=== PATIENT | female | born 2000 | race Caucasian/White ===

== ENCOUNTER 2020-01-09 20:52 | Emergency (ER) | payer SELFPAY ==
[~2020-01-09] VITALS: Ht 160 cm; Wt 45.5 kg
[2020-01-09 21:15] VITALS: Ht 160 cm; Wt 45.5 kg
[2020-01-09] MEDS ORDERED: ANTIDEPRESSANT (21:18)
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
[2020-01-09 22:04] LABS: BASOPHILS 0.3 % (0-2); EOSINOPHILS 5.5 % (0-7); HEMOGLOBIN 11.4 g/dL (12-16); IMMATURE GRANULOCYTES 0.6 % (0-5); LYMPHOCYTES 34.6 % (15-50); MCH 28.5 pg (26.0-34.0); MCHC 31.7 g/dL (31.0-37.0); MONOCYTES 12.2 % (2-11); NEUTROPHILS 46.8 % (40-80); PLATELET COUNT 264 10x3/uL (130-400); RDW 13.2 % (11.5-14.5); WBC 10.2 10x3/uL (4.8-10.8)
[2020-01-09 22:05] LABS: BILIRUBIN NEGATIVE (NEGATIVE); GLUCOSE NEGATIVE (NEGATIVE); KETONE NEGATIVE (NEGATIVE); NITRITE NEGATIVE (NEGATIVE); UROBILINOGEN NORMAL (NORMAL)
[2020-01-09 22:07] LABS: HCG URINE NEGATIVE (NEGATIVE)
[2020-01-09 22:15] LABS: CALC OSMOLALITY 272 mosm/kg (275-300); CALCIUM 8.7 mg/dL (8.5-10.1); CHLORIDE - SERUM 104 mmol/L (98-107); CREATININE - SERUM 0.8 mg/dL (0.6-1.3); GLUCOSE 84 mg/dL (74-106); POTASSIUM - SERUM 3.6 mmol/L (3.5-5.1); SODIUM 136 mmol/L (136-145); UREA NITROGEN 18 mg/dL (7-18); eGFR NON AFRICAN AMERICAN > 90 mL/min (90-120)
[2020-01-09 23:00] VITALS: BP 113/80
== END 2020-01-09 23:00 | disposition home or self-care (01) ==
LOC: D.ER 20:52
PROVIDERS: Emergency Medicine
DX: G44.209 Tension-type headache, unspecified, not intractable (principal); R11.0 Nausea

== ENCOUNTER 2020-10-25 20:42 | Emergency (ER) | payer OTHER ==
[~2020-10-25] VITALS: Ht 160 cm; Wt 72.3 kg
[~2020-10-25 20:42] MED LIST: ANTIDEPRESSANT
[2020-10-25 20:51] VITALS: Ht 160 cm; Wt 72.3 kg
[2020-10-25 22:31] LABS: BILIRUBIN NEGATIVE (NEGATIVE); HCG URINE NEGATIVE (NEGATIVE); KETONE NEGATIVE (NEGATIVE); NITRITE NEGATIVE (NEGATIVE); UROBILINOGEN NORMAL mg/dL (< 2)
[2020-10-25 22:45] LABS: BASOPHILS 0.2 % (0-2); EOSINOPHILS 5.9 % (0-7); HEMATOCRIT 37.4 % (36.0-48.0); HEMOGLOBIN 11.8 g/dL (12-16); IMMATURE GRANULOCYTES 0.4 % (0-5); LYMPHOCYTE ABS# 4.18 10x3/uL (1.18-3.74); LYMPHOCYTES 29.5 % (15-50); MCH 26.6 pg (26.0-34.0); MCHC 31.6 g/dL (31.0-37.0); MCV 84.2 fL (80.0-100.0); MEAN PLATELET VOLUME 10.1 fL (7.4-10.4); MONOCYTES 8.2 % (2-11); NEUTROPHIL ABS# 7.89 10x3/uL (1.56-6.13); NEUTROPHILS 55.8 % (40-80); RBC 4.44 10x6/uL (4.00-5.40); RDW 15.6 % (11.5-14.5); WBC 14.2 10x3/uL (4.8-10.8)
[2020-10-25 22:52] LABS: CALC OSMOLALITY 272 mosm/kg (275-300); CARBON DIOXIDE 23.2 mmol/L (21.0-32.0); CHLORIDE - SERUM 102 mmol/L (98-107); CREATININE - SERUM 0.8 mg/dL (0.6-1.3); GLUCOSE 83 mg/dL (74-106); POTASSIUM - SERUM 3.7 mmol/L (3.5-5.1); SODIUM 138 mmol/L (136-145); UREA NITROGEN 7 mg/dL (7-18); eGFR NON AFRICAN AMERICAN > 90 mL/min (90-120)
[2020-10-25 22:58] LABS: ALKALINE PHOSPHATASE 110 U/L (30-120); ALT (SGPT) 23 U/L (10-68); BILIRUBIN - TOTAL 0.27 mg/dL (0.2-1.3); PROTEIN - SERUM 7.9 g/dL (6.4-8.2)
[2020-10-25 23:01] LABS: PLATELET COUNT 344 10x3/uL (130-400)
[2020-10-26] MEDS ORDERED: ZOFRAN ODT4 MG/UDTAB PO (00:19)
[2020-10-26] MEDS ORDERED: BENTYL10 MG PO (00:19)
[2020-10-26 02:36] VITALS: BP 108/62
== END 2020-10-26 02:37 | disposition home or self-care (01) ==
LOC: D.ER 20:42
PROVIDERS: Family Medicine
DX: R51.9 Headache, unspecified (principal); D72.829 Elevated white blood cell count, unspecified; Q43.3 Congenital malformations of intestinal fixation; R10.30 Lower abdominal pain, unspecified

== ENCOUNTER 2020-10-28 07:56 | Emergency (ER) | payer OTHER ==
[~2020-10-28] VITALS: Ht 160 cm; Wt 72.3 kg
[~2020-10-28 07:56] MED LIST changes: +BENTYL10 MG PO; +ZOFRAN ODT4 MG/UDTAB PO
[2020-10-28 08:02] VITALS: BP 126/78; Ht 160 cm; Wt 72.3 kg
[2020-10-28 08:37] LABS: CALC OSMOLALITY 275 mosm/kg (275-300); CALCIUM 9.1 mg/dL (8.5-10.1); CARBON DIOXIDE 26.3 mmol/L (21.0-32.0); CHLORIDE - SERUM 104 mmol/L (98-107); CREATININE - SERUM 0.7 mg/dL (0.6-1.3); GLUCOSE 88 mg/dL (74-106); SODIUM 139 mmol/L (136-145); UREA NITROGEN 11 mg/dL (7-18); eGFR NON AFRICAN AMERICAN > 90 mL/min (90-120)
[2020-10-28 08:38] LABS: BASOPHILS 0.5 % (0-2); EOSINOPHILS 6.8 % (0-7); HEMATOCRIT 34.6 % (36.0-48.0); HEMOGLOBIN 10.9 g/dL (12-16); IMMATURE GRANULOCYTES 0.5 % (0-5); LYMPHOCYTE ABS# 2.28 10x3/uL (1.18-3.74); LYMPHOCYTES 26.2 % (15-50); MCH 26.5 pg (26.0-34.0); MCHC 31.5 g/dL (31.0-37.0); MEAN PLATELET VOLUME 10.1 fL (7.4-10.4); MONOCYTES 12.1 % (2-11); NEUTROPHIL ABS# 4.71 10x3/uL (1.56-6.13); NEUTROPHILS 53.9 % (40-80); PLATELET COUNT 349 10x3/uL (130-400); RBC 4.12 10x6/uL (4.00-5.40); RDW 15.6 % (11.5-14.5); WBC 8.7 10x3/uL (4.8-10.8)
[2020-10-28 08:42] LABS: HCG SERUM NEGATIVE (NEGATIVE)
[2020-10-28 08:44] LABS: ALBUMIN 3.8 g/dL (3.4-5.0); ALKALINE PHOSPHATASE 101 U/L (30-120); ALT (SGPT) 17 U/L (10-68); AMYLASE - SERUM 69 U/L (25-115); LIPASE 166 U/L (73-393); PROTEIN - SERUM 7.5 g/dL (6.4-8.2)
[2020-10-28 08:44] LABS: BILIRUBIN NEGATIVE (NEGATIVE); KETONE NEGATIVE (NEGATIVE); NITRITE NEGATIVE (NEGATIVE); UDS - AMPHET NEGATIVE QUAL (NEGATIVE); UDS - BARB NEGATIVE QUAL (NEGATIVE); UDS - BENZO NEGATIVE QUAL (NEGATIVE); UDS - COCAINE NEGATIVE QUAL (NEGATIVE); UDS - OPIATE NEGATIVE QUAL (NEGATIVE); UDS - PCP NEGATIVE QUAL (NEGATIVE); UDS - THC POSITIVE QUAL (NEGATIVE); UROBILINOGEN NORMAL mg/dL (< 2)
[2020-10-28] MEDS ORDERED: PROTONIX40 MG PO (10:20)
[2020-10-28] MEDS ORDERED: ZOFRAN ODT4 MG/UDTAB PO (10:20)
== END 2020-10-28 10:36 | disposition home or self-care (01) ==
LOC: D.ER 07:56
PROVIDERS: Family Medicine
DX: R11.10 Vomiting, unspecified (principal); K52.9 Noninfective gastroenteritis and colitis, unspecified; Q43.3 Congenital malformations of intestinal fixation; R10.9 Unspecified abdominal pain